=== PATIENT | female | born 1965 | race Caucasian/White ===

== ENCOUNTER → 2016-10-05 | Outpatient (REF) | payer OTHER ==
[2016-10-05 16:04] LABS: ALBUMIN 3.8 GM/DL (3.2-5.2); ALBUMIN/GLOBULIN RATIO 1.41 (1.00-1.93); ALKALINE PHOSPHATASE 57 U/L (45-117); ALT/SGPT 27 U/L (12-78); ANION GAP 10 MEQ/L (8-16); AST/SGOT 23 U/L (15-37); BILIRUBIN,TOTAL 0.5 MG/DL (0.2-1.0); BLOOD UREA NITROGEN 11 MG/DL (7-18); CALCIUM LEVEL 8.4 MG/DL (8.5-10.1); CARBON DIOXIDE LEVEL 23 MEQ/L (21-32); CHLORIDE LEVEL 110 MEQ/L (98-107); CHOLESTEROL LEVEL 163 MG/DL (<200); CREATININE FOR GFR 0.74 MG/DL (0.55-1.02); GLOMERULAR FILTRATION RATE > 60.0 (>51); GLUCOSE, FASTING 79 MG/DL (70-105); MAGNESIUM LEVEL 1.9 MG/DL (1.8-2.4); POTASSIUM SERUM 3.9 MEQ/L (3.5-5.1); SODIUM LEVEL 143 MEQ/L (136-145); TOTAL PROTEIN 6.5 GM/DL (6.4-8.2); TRIGLYCERIDES LEVEL 75 MG/DL (<150)
== END | disposition home or self-care (01) ==
LOC: M SFHCLACO 08:25
PROVIDERS: ATTEND Physician Assistant
DX: I10 Essential (primary) hypertension (principal); E78.2 Mixed hyperlipidemia; Z68.37 Body mass index [BMI] 37.0-37.9, adult; R12 Heartburn

== ENCOUNTER → 2017-01-31 | Outpatient (CLI) | payer OTHER ==
--- NOTE | 2017-02-01 04:49 | REP ---
Clinical: Abnormal uterine bleeding . Technique: Transabdominal pelvic ultrasound followed by transvaginal examination for better evaluation of the endometrium and adnexa. Findings: Bladder is unremarkable and measures 10.8 x 10.1 x 8.5 cm . Heterogeneous anteverted, myomatous uterus measures 14.4 x 5.9 x 7.7 cm. The endometrial complex measures 5.6 mm thickness and demonstrates trace endocervical fluid. A right fundal subserosal/pedunculated fibroid is identified measuring 3.8 cm maximal diameter. Right anterior intramural fibroid measures 2.3 cm maximal diameter. Right posterior intramural fibroid measures 1.9 cm maximal diameter. Right ovary measures 4.6 x 3.0 x 3.7 cm with 3.6 cm cyst left ovary measures 2.2 x 1.2 x 2.4 cm. No pelvic fluid or adnexal mass lesions. . Impression: 1. Heterogeneous myomatous uterus as described above with trace endocervical fluid. Largest fibroid is identified in the fundal region and partially pedunculated measuring 3.8 cm maximal diameter. 2. 3.6 cm right ovarian cyst. Consider follow-up examination in 4-6 weeks to evaluate for resolution. Signed by Peña Land MD 02/01/2017 04:40 A
== END ==
LOC: M WHC 08:48
PROVIDERS: ATTEND Physician Assistant
DX: N95.1 Menopausal and female climacteric states (principal)

== ENCOUNTER → 2017-03-01 | Outpatient (REF) | payer OTHER ==
[2017-03-01 15:47] LABS: ANION GAP 7 MEQ/L (8-16); BLOOD UREA NITROGEN 13 MG/DL (7-18); CARBON DIOXIDE LEVEL 28 MEQ/L (21-32); CHLORIDE LEVEL 105 MEQ/L (98-107); CREATININE FOR GFR 0.78 MG/DL (0.55-1.02); GLOMERULAR FILTRATION RATE > 60.0 (>51); GLUCOSE, FASTING 73 MG/DL (70-105); POTASSIUM SERUM 3.9 MEQ/L (3.5-5.1); SODIUM LEVEL 140 MEQ/L (136-145)
[2017-03-01 15:48] LABS: ALBUMIN 3.5 GM/DL (3.2-5.2); ALBUMIN/GLOBULIN RATIO 1.09 (1.00-1.93); ALKALINE PHOSPHATASE 64 U/L (45-117); ALT/SGPT 32 U/L (12-78); AST/SGOT 27 U/L (15-37); BILIRUBIN,TOTAL 0.7 MG/DL (0.2-1.0); CALCIUM LEVEL 8.5 MG/DL (8.5-10.1); CHOLESTEROL LEVEL 193 MG/DL (<200); MAGNESIUM LEVEL 2.2 MG/DL (1.8-2.4); TOTAL PROTEIN 6.7 GM/DL (6.4-8.2); TRIGLYCERIDES LEVEL 74 MG/DL (<150)
== END ==
LOC: M SFHCLACO 07:45
PROVIDERS: ATTEND Physician Assistant
DX: I10 Essential (primary) hypertension (principal); E78.2 Mixed hyperlipidemia; Z68.37 Body mass index [BMI] 37.0-37.9, adult; R12 Heartburn

== ENCOUNTER → 2017-07-09 | Outpatient (REF) | payer OTHER ==
[~2017-07-09] MED LIST: ESTR2TA PO; IBUP-1022 PO; MEDR5TAB3 PO; OXYC1TAB23 PO; SIMV10TA2 PO
[2017-07-09 18:46] LABS: BASO # 0.1 10^3/uL (0.0-0.2); BASO % 0.7 % (0.0-1.0); EOS # 0.1 10^3/uL (0.0-0.50); EOS % 1.3 % (0.0-3.0); IMMATURE GRANULOCYTE % 0.1 % (0-0); LYMPH % 38.5 % (24.0-44.0); MEAN CORPUSCULAR HEMOGLOBIN 30.7 pg (27.0-33.0); MEAN CORPUSCULAR HGB CONC 34.6 g/dl (32.0-36.5); MEAN CORPUSCULAR VOLUME 88.9 fl (80.0-96.0); MONO # 0.5 10^3/uL (0.0-0.8); MONO % 6.5 % (0.0-5.0); NEUTROPHILS # 4.1 10^3/uL (1.8-7.7); NEUTROPHILS % 52.9 % (36.0-66.0); PLATELET COUNT, AUTOMATED 255 10^3/uL (150-450); RED CELL DISTRIBUTION WIDTH 12.4 % (11.5-14.5); WHITE BLOOD COUNT 7.7 10^3/uL (4.0-10.0)
[2017-07-09 18:57] LABS: INR 0.94
[2017-07-09 19:07] LABS: ALBUMIN 3.8 GM/DL (3.2-5.2); ALBUMIN/GLOBULIN RATIO 1.31 (1.00-1.93); ALKALINE PHOSPHATASE 53 U/L (45-117); ALT/SGPT 33 U/L (12-78); ANION GAP 9 MEQ/L (8-16); AST/SGOT 33 U/L (15-37); BILIRUBIN,TOTAL 0.5 MG/DL (0.2-1.0); BLOOD UREA NITROGEN 13 MG/DL (7-18); CALCIUM LEVEL 8.7 MG/DL (8.5-10.1); CARBON DIOXIDE LEVEL 27 MEQ/L (21-32); CHLORIDE LEVEL 104 MEQ/L (98-107); CREATININE FOR GFR 0.85 MG/DL (0.55-1.02); FREE T4 1.42 NG/DL (0.76-1.46); GLOMERULAR FILTRATION RATE > 60.0 (>51); GLUCOSE, FASTING 68 MG/DL (70-105); MAGNESIUM LEVEL 2.2 MG/DL (1.8-2.4); POTASSIUM SERUM 3.8 MEQ/L (3.5-5.1); SODIUM LEVEL 140 MEQ/L (136-145); TOTAL PROTEIN 6.7 GM/DL (6.4-8.2)
== END ==
LOC: M SFHCPLAZ 16:06
PROVIDERS: ATTEND Family Medicine
DX: I10 Essential (primary) hypertension (principal)

== ENCOUNTER 2017-08-01 08:17 | Day surgery (SDC) | payer MEDICAID, OTHER ==
[2017-08-01] VITALS (7 sets, daily range): BP systolic 109–124; BP diastolic 58–72
[~2017-08-01] VITALS: Ht 157.5 cm; Wt 92.5 kg
[~2017-08-01 08:17] MED LIST changes: -IBUP-1022 PO; -OXYC1TAB23 PO
[2017-08-01] MEDS ORDERED: LR 1,000 ML IV ONE (08:30)
[2017-08-01] MEDS: DOCUSATE SODIUM 100 MG CAP PO SCH ×2 (09:00→20:39)
[2017-08-01 09:18] LABS: MEAN CORPUSCULAR HEMOGLOBIN 30.8 pg (27.0-33.0); MEAN CORPUSCULAR HGB CONC 34.3 g/dl (32.0-36.5); MEAN CORPUSCULAR VOLUME 89.7 fl (80.0-96.0); PLATELET COUNT, AUTOMATED 249 10^3/uL (150-450); RED CELL DISTRIBUTION WIDTH 12.3 % (11.5-14.5); WHITE BLOOD COUNT 6.5 10^3/uL (4.0-10.0)
[2017-08-01] MEDS ORDERED: BUPIVACAINE HCL 0.25% 30 ML VIAL As Ordered ONE (09:38)
[2017-08-01] MEDS ORDERED: METHYLENE BLUE 0.5% (5MG/ML) 10 ML AMP (PROVAYBLUE)(Q9968 PER 1MG) As Ordered ONE (09:38)
[2017-08-01] MEDS ORDERED: fentaNYL 250 MCG/5 ML INJECTION (J3010) As Ordered ONE (10:06)
[2017-08-01] MEDS ORDERED: PROPOFOL 200 MG/20 ML VIAL As Ordered ONE (10:06)
[2017-08-01] MEDS ORDERED: MIDAZOLAM INJ 2 MG/2 ML VIAL (J2250) As Ordered ONE (10:06)
[2017-08-01] MEDS ORDERED: LIDOCAINE 2% INJ 100 MG/5 ML SDV (FOR ANES.) As Ordered ONE (10:06)
[2017-08-01] MEDS ORDERED: METOCLOPRAMIDE INJ 10MG/2ML VIAL (J2765) As Ordered ONE (10:06)
[2017-08-01] MEDS ORDERED: ROCURONIUM BROMIDE 50 MG/5 ML VIAL As Ordered ONE ×2 (10:07→10:25)
[2017-08-01] MEDS ORDERED: LABETALOL HCL 100 MG/20 ML VIAL As Ordered ONE (10:17)
[2017-08-01] MEDS ORDERED: ceFAZolin 2 GM/D5W 50 ML IV BAG (J0690) As Ordered ONE (10:20)
[2017-08-01] MEDS ORDERED: KETOROLAC 60 MG/2 ML VIAL (J1885) As Ordered ONE (10:25)
[2017-08-01] MEDS ORDERED: ONDANSETRON 4MG/2ML VIAL (J2405) As Ordered ONE ×2 (10:25→13:32)
[2017-08-01] MEDS ORDERED: GLYCOPYRROLATE INJ 0.2 MG/ML 2 ML VIAL As Ordered ONE (10:25)
[2017-08-01] MEDS ORDERED: SEVOFLURANE INHAL SOLN 250 ML BTL As Ordered ONE (10:35)
[2017-08-01] MEDS ORDERED: NEOSTIGMINE 10 MG/10 ML VIAL (J2710) As Ordered ONE (11:47)
[2017-08-01] MEDS ORDERED: fentaNYL 100 MCG/2 ML INJECTION (J3010) IV PRN (13:00)
[2017-08-01] MEDS ORDERED: LR 1,000 ML IV SCH (13:00)
[2017-08-01] MEDS ORDERED: ONDANSETRON 4MG/2ML VIAL (J2405) IV PRN ×2 (13:00→13:15)
[2017-08-01] MEDS ORDERED: HYDROmorphone HCL 1 MG/ML SYRINGE (J1170) As Ordered ONE (13:01)
[2017-08-01] MEDS ORDERED: PERCOCET 5MG/325MG TAB As Ordered ONE ×2 (13:01→13:31)
[2017-08-01] MEDS: PERCOCET 5MG/325MG TAB PO PRN ×2 (13:05→13:35)
[2017-08-01] MEDS: HYDROmorphone HCL 1 MG/ML SYRINGE (J1170) IV PRN ×2 (13:06→13:19)
[2017-08-01] MEDS ORDERED: OXYC1TAB23 PO (13:07)
[2017-08-01] MEDS ORDERED: MORPHINE 4 MG/ML 1ML SYRINGE IV PRN (13:15)
[2017-08-01] MEDS ORDERED: KETOROLAC 30 MG/ML VIAL (J1885) IV PRN (13:15)
[2017-08-01] MEDS ORDERED: PERCOCET 5MG/325MG TAB PO PRN (13:15)
[2017-08-01] MEDS: LR 1,000 ML IV SCH ×2 (15:42→20:43)
[2017-08-02] VITALS: BP 127/57
[2017-08-02] MEDS: PERCOCET 5MG/325MG TAB PO PRN ×2 (00:10→08:16)
[2017-08-02 04:00] VITALS: BP 110/59
[2017-08-02 08:00] VITALS: BP 137/74
[2017-08-02] MEDS: DOCUSATE SODIUM 100 MG CAP PO SCH (08:16)
[2017-08-02] MEDS ORDERED: IBUP-1022 PO (08:39)
--- NOTE | 2017-08-02 17:59 | RO ---
DATE OF PROCEDURE: 08/01/2017 PREPROCEDURE DIAGNOSES: Menorrhagia, fibroids, pelvic pain. POSTPROCEDURE DIAGNOSES: Menorrhagia, fibroids, pelvic pain. OPERATIVE PROCEDURES: Robotic assisted laparoscopic hysterectomy, lyses of adhesions, cystoscopy. SURGEON: Darshan Pitt MD [facility] NURSE: Isela Strauss NP ANESTHESIA: General endotracheal. ESTIMATED BLOOD LOSS: 200 mL. URINE OUTPUT: 200 mL. FINDINGS: Enlarged uterus with multiple fibroids including a 5 cm pedunculated fundal fibroid. Elongated cervix with dense adhesions of the uterus to the anterior abdominal wall. The uterus was distorted and rotated towards the patient's left side with dense adhesions. She had omental adhesions draped over the uterus and fibroid. DESCRIPTION OF PROCEDURE: The patient was taken to the operating room where general endotracheal anesthesia was induced. She was prepped and draped in a sterile fashion in the dorsal lithotomy position. A Boo catheter was placed. A [place] uterine manipulator was placed. A periumbilical incision was made with a scalpel. A Veress needle was placed through this incision while tenting up on the skin. A pneumoperitoneum was created. The Veress needle was removed. An 11 mm trocar using Artaic was placed through this incision. Three 8 mm suprapubic ports were placed under direct visualization. The patient was placed in Trendelenburg position and the [place] [employer]se surgical robot was docked to the ports. Using the PK dissector and monopolar EndoShears omental adhesions to the uterus were taken down sharply. Adhesions of the pedunculated fibroid and anterior uterus and the anterior abdominal wall were taken down sharply. The bladder was filled in retrograde fashion to identify its location in relationship to dense pelvic adhesions of the anterior uterus. The uteroovarian ligaments, fallopian tubes and round ligaments were coagulated and incised. The anterior and posterior leaves of the broad ligament were . A bladder flap was created. The uterine vessels were skeletonized, coagulated and incised. A colpotomy was created anteriorly at the upper vagina at the level of the VCare cup. The upper vagina was circumscribed with monopolar [place]. Specimens containing the uterus, cervix and fibroids removed through the vagina. The vaginal cuff was closed #0 V-Loc suture in a running fashion. The pelvis was irrigated. All instruments removed. The patient received methylene blue dye intravenously. Cystoscopy was performed and using a 70 degrees cystoscope bilaterally, ureteral jets were identified. The bladder was normal. The cystoscope was removed. Isela Strauss NP assisted with the entire case from beginning to end. She assisted with positioning the patient, insertions of ports. She manipulated the uterus throughout the procedure, removed the uterus from the patient's body. She then assisted with closure of the ports and moving the patient out of the room. All ports were removed. The skin was closed with #4-0 Monocryl subcuticular sutures. Sponge, instrument and needle counts were correct.
== END 2017-08-02 11:10 | disposition home or self-care (01) ==
LOC: M SDC 08:17 → M PED 10:40 → M SDC 08-02 11:10
PROVIDERS: ATTEND Specialist
DX: N92.0 Excessive and frequent menstruation with regular cycle (principal); D25.1 Intramural leiomyoma of uterus; N80.0 Endometriosis of uterus; E78.00 Pure hypercholesterolemia, unspecified; K21.9 Gastro-esophageal reflux disease without esophagitis; Z79.899 Other long term (current) drug therapy; Z98.51 Tubal ligation status; Z78.0 Asymptomatic menopausal state
CPT/HCPCS: 36415; 58570; 85027; 86850; 86900; 86901; 88307; J0690; J1170; J1885; J2250; J2405; J2710; J2765; J3010; Q9968

== ENCOUNTER → 2017-08-30 | Outpatient (REF) | payer OTHER ==
[~2017-08-30] MED LIST changes: +IBUP-1022 PO; +OXYC1TAB23 PO
[2017-08-30 14:52] LABS: MEAN CORPUSCULAR HEMOGLOBIN 30.3 pg (27.0-33.0); MEAN CORPUSCULAR HGB CONC 33.6 g/dl (32.0-36.5); MEAN CORPUSCULAR VOLUME 90.2 fl (80.0-96.0); PLATELET COUNT, AUTOMATED 280 10^3/uL (150-450); RED CELL DISTRIBUTION WIDTH 12.3 % (11.5-14.5); WHITE BLOOD COUNT 7.7 10^3/uL (4.0-10.0)
[2017-08-30 15:08] LABS: ALBUMIN 3.9 GM/DL (3.2-5.2); ALBUMIN/GLOBULIN RATIO 1.22 (1.00-1.93); ALKALINE PHOSPHATASE 67 U/L (45-117); ALT/SGPT 29 U/L (12-78); ANION GAP 9 MEQ/L (8-16); AST/SGOT 28 U/L (7-37); BILIRUBIN,TOTAL 0.5 MG/DL (0.2-1.0); BLOOD UREA NITROGEN 10 MG/DL (7-18); CALCIUM LEVEL 9.1 MG/DL (8.5-10.1); CARBON DIOXIDE LEVEL 29 MEQ/L (21-32); CHLORIDE LEVEL 106 MEQ/L (98-107); CHOLESTEROL LEVEL 170 MG/DL (<200); GLOMERULAR FILTRATION RATE > 60.0 (>51); GLUCOSE, FASTING 76 MG/DL (70-105); POTASSIUM SERUM 3.9 MEQ/L (3.5-5.1); SODIUM LEVEL 144 MEQ/L (136-145); TOTAL PROTEIN 7.1 GM/DL (6.4-8.2); TRIGLYCERIDES LEVEL 62 MG/DL (<150)
== END ==
LOC: M SFHCLACO 08:02
PROVIDERS: ATTEND Physician Assistant
DX: D25.1 Intramural leiomyoma of uterus (principal); I10 Essential (primary) hypertension; E78.2 Mixed hyperlipidemia; Z68.37 Body mass index [BMI] 37.0-37.9, adult

== ENCOUNTER → 2018-03-07 | Outpatient (REF) | payer OTHER ==
[2018-03-07 15:15] LABS: ALBUMIN 3.9 GM/DL (3.2-5.2); ALKALINE PHOSPHATASE 70 U/L (45-117); ALT/SGPT 28 U/L (12-78); ANION GAP 8 MEQ/L (8-16); AST/SGOT 25 U/L (7-37); BILIRUBIN,TOTAL 0.6 MG/DL (0.2-1.0); BLOOD UREA NITROGEN 13 MG/DL (7-18); CARBON DIOXIDE LEVEL 30 MEQ/L (21-32); CHLORIDE LEVEL 107 MEQ/L (98-107); CHOLESTEROL LEVEL 214 MG/DL (<200); CHOLESTEROL RISK RATIO 2.578 (<5); CREATININE FOR GFR 0.81 MG/DL (0.55-1.30); GLOMERULAR FILTRATION RATE > 60.0 (>51); GLUCOSE, FASTING 75 MG/DL (70-100); HDL CHOLESTEROL 83 MG/DL (>40); LDL CHOLESTEROL 119.6 MG/DL (<100); NON-HDL-C 131 MG/DL; POTASSIUM SERUM 4.1 MEQ/L (3.5-5.1); SODIUM LEVEL 145 MEQ/L (136-145); TOTAL PROTEIN 6.9 GM/DL (6.4-8.2); TRIGLYCERIDES LEVEL 57 MG/DL (<150)
== END ==
LOC: M SFHCLACO 08:00
DX: I10 Essential (primary) hypertension (principal); E78.2 Mixed hyperlipidemia
CPT/HCPCS: 80053